=== PATIENT | male | born 1985 | race Caucasian/White ===

== ENCOUNTER 2023-09-02 07:10 | Emergency (ER) | payer SELFPAY ==
[2023-09-02 07:13] VITALS: BP 126/88; PULSE 51; TEMP 36.7; O2SAT 100; BMI 33.4
--- NOTE | 2023-09-02 07:39 | ED.GENADUL1 ---
HPI HPI - General Adult General Chief complaint: Weakness Stated complaint: GENERAL WEAKNESS Time Seen by Provider: 09/02/23 07:21 Source: patient Mode of arrival: walk-in Limitations: no limitations History of Present Illness HPI narrative: Patient felt panicked when he woke this morning. He was anxious and thought his heart was racing. He was nauseous but did not vomit. No chest pain or shortness of breath. Symptoms have all resolved except for vague sensation of nausea-like feeling. No recent injury or illness. He said that he was feeling totally fine yesterday . he said that his PCP had told him that he needed to get out-patient blood testing as a wellness check but he never did. His review of systems is otherwise negative and he has no emergent complaint or particular concern. Related Data Previous Rx's ?Medication ?Instructions ?Recorded ondansetron 4 mg disintegrating 4 mg PO Q6H PRN nausea #10 tabs 09/02/23 tablet Allergies Allergy/AdvReac Type Severity Reaction Status Date / Time No Known Drug Allergies Allergy Verified 09/02/23 07:13 Opioid HPI Opioid Management Most Recent Opioid Data: Last Pain Scale 0 09/02/23 07:19 Last ED Pain Assessment 09/02/23 07:19 Exam Narrative Exam Narrative: Nurses notes and vital signs reviewed and patient is not hypoxic. afebrile General: Well-appearing and in no apparent distress. Skin: Warm, dry, no pallor noted. Head: Normocephalic, atraumatic. Neck: Supple, non-tender. Eye: Pupils are equal, round and EOMI. No scleral icterus. Ears, Nose, Mouth, and Throat: Oral mucosa is moist Cardiovascular: Regular Rate and Rhythm without murmur, gallop or rub. Respiratory: No accessory muscle use or respiratory distress. Lungs are clear to auscultation, no wheezing, rales or rhonchi Back: No midline thoracic or lumbar vertebral tenderness. No CVA tenderness Musculoskeletal: normal ROM, no calf or popliteal tenderness, no lower extremity edema/swelling GI: Abdomen is soft, non-distended. Normal bowel sounds. No masses appreciated. No tenderness to palpation. No rebound, guarding, or rigidity noted. Neurological: A&O x4. No cranial nerve dysfunction observed. No truncal ataxia. Moves all extremities. Sensation intact. Psychiatric: Cooperative and interactive. Normal mood and affect. Constitutional Vital Signs, click to edit/add: Last Vital Signs Temp 98.0 F 09/02/23 07:13 Pulse 51 L 09/02/23 07:13 Resp 18 09/02/23 07:13 BP 126/88 09/02/23 07:13 Pulse Ox 100 09/02/23 07:13 Course Vital Signs Vital signs: Vital Signs Temperature 98.0 F 09/02/23 07:13 Pulse Rate 51 L 09/02/23 07:13 Respiratory Rate 18 09/02/23 07:13 Blood Pressure 126/88 09/02/23 07:13 Pulse Oximetry 100 09/02/23 07:13 Temperature 98.0 F 09/02/23 07:13 Pulse Rate 51 L 09/02/23 07:13 Respiratory Rate 18 09/02/23 07:13 Blood Pressure 126/88 09/02/23 07:13 Pulse Oximetry 100 09/02/23 07:13 Medical Decision Making MDM Narrative Medical decision making narrative: Patient may have had a panic attack this morning. Symptoms have resolved except for mild nausea-like sensation. He was given some zofran and discharged home. He will contact Dr guevara to get out-patient blood testing as they had discussed. Work excuse given. Discharge Plan Discharge Stand Alone Forms: Portal Instructions Chief Complaint: Weakness Clinical Impression: Anxiety, Nausea Patient Disposition: Home, Self-Care Time of Disposition Decision: 07:37 Prescriptions / Home Meds: New ondansetron 4 mg tablet,disintegrating 4 mg PO Q6H PRN (Reason: nausea) Qty: 10 0RF Print Language: Luxembourgish Instructions: Anxiety (ED) Referrals: Isauro Guevara MD [Primary Care Provider] - 1 week
[2023-09-02] MEDS: ONDANSETRON 4 MG RAPDIS TABLET SL (07:42)
== END 2023-09-02 07:47 | disposition home or self-care (01) ==
PROVIDERS: Emergency Provider Emergency Medicine; PCP Family Medicine
DX: F41.9 Anxiety disorder, unspecified (principal); R11.0 Nausea
CPT/HCPCS: 99283

== ENCOUNTER 2024-06-29 16:21 | Emergency (ER) | payer BC, SELFPAY ==
[2024-06-29 16:27] VITALS: BP 139/91; PULSE 113; TEMP 36.8; O2SAT 96; BMI 35.2
[2024-06-29 16:48] LABS: Strep A Antigen Screen Negative
[2024-06-29 16:49] LABS: Influenza Virus A Antigen Positive; Influenza Virus B Antigen Negative; Internal Control Within Normal Limits; SARS-CoV-2 Ag NEGATIVE (NEGATIVE)
[2024-06-29 16:49] LABS: Internal Control Within Normal Limits
--- NOTE | 2024-06-29 16:56 | ED.GENADUL1 ---
HPI HPI - General Adult General Chief complaint: Nausea/Vomiting/Diarrhea Stated complaint: FLU LIKE SYMPTOMS Time Seen by Provider: 06/29/24 16:26 Source: patient Mode of arrival: walk-in Limitations: no limitations History of Present Illness HPI narrative: Patient is a 39-year-old male who presents to the emergency department for flulike illness that began yesterday. Patient states he has had headache, body aches, sore throat, cough, congestion. He states he vomited last night. He denies diarrhea. No sick contacts in the home. No medications taken prior to arrival. He does not know if he has had any objective fevers because they do not have a thermometer. Related Data Previous Rx's ?Medication ?Instructions ?Recorded ondansetron 4 mg disintegrating 4 mg PO Q6H PRN nausea #10 tabs 09/02/23 tablet tespovamzqhxmgb-xhxzxkigmjivovd-SB 10 ml PO Q6H PRN cold symptoms 06/29/24 2 mg-30 mg-10 mg/5 mL oral syrup #200 mL (Bromfed DM) ondansetron 4 mg disintegrating 4 mg PO Q6H PRN nausea and 06/29/24 tablet vomiting #12 tabs Allergies Allergy/AdvReac Type Severity Reaction Status Date / Time No Known Drug Allergies Allergy Verified 06/29/24 16:27 Opioid HPI Opioid Management Most Recent Opioid Data: Last Pain Scale 0 09/02/23 07:19 09/02/23 Review of Systems ROS Constitutional Denies: fever or chills Ears, nose, mouth, and throat Reports: throat pain, nasal discharge and nasal congestion Cardiovascular Denies: chest pain Respiratory Reports: cough; Denies: shortness of breath Gastrointestinal Reports: nausea and vomiting; Denies: diarrhea Integumentary/Breast Denies: rash Neurological Reports: headache; Denies: numbness in extremities or weakness in extremities Hematologic/Lymphatic Denies: easy bruising or easy bleeding PFSH PFSH Social History Little interest or pleasure in doing things: not at all Feeling down, depressed, or hopeless: not at all Exam Narrative Exam Narrative: Gen.: Awake, alert, in no distress Head: Normocephalic, atraumatic ENT: Moist mucous membranes, no pharyngeal erythema. Right TM fluid-filled Respiratory: No respiratory distress, lungs clear bilaterally Cardio: Regular rate and rhythm Extremities: Moves extremities equally Psych: Normal mood and affect Neuro: No focal neuro deficit Skin: Warm, dry, intact Constitutional Vital Signs, click to edit/add: Last Vital Signs Temp 98.2 F 06/29/24 16:27 Pulse 113 H 06/29/24 16:27 Resp 18 06/29/24 16:27 BP 139/91 06/29/24 16:27 Pulse Ox 96 06/29/24 16:27 O2 Del Method Room Air 06/29/24 16:27 Course Vital Signs Vital signs: Vital Signs Temperature 98.2 F 06/29/24 16:27 Pulse Rate 113 H 06/29/24 16:27 Respiratory Rate 18 06/29/24 16:27 Blood Pressure 139/91 06/29/24 16:27 Pulse Oximetry 96 06/29/24 16:27 Oxygen Delivery Method Room Air 06/29/24 16:27 Temperature 98.2 F 06/29/24 16:27 Pulse Rate 113 H 06/29/24 16:27 Respiratory Rate 18 06/29/24 16:27 Blood Pressure 139/91 06/29/24 16:27 Pulse Oximetry 96 06/29/24 16:27 Oxygen Delivery Method Room Air 06/29/24 16:27 Medical Decision Making MDM Narrative Medical decision making narrative: Pain is positive for influenza A. He was given education and reassurance. Treated with Zofran and Decadron in the ER and discharged home with Bromfed-DM and Zofran for home. Work note provided. Increase fluids. Motrin and Tylenol recommended. Return to the ER if symptoms change or worsen SUPERVISED APC VISIT, PHYSICIAN ATTESTATION: Based on the medical record the care appears appropriate. ? Medical Records Medical records reviewed: Yes I reviewed the patient's medical records Lab Data Lab results reviewed: Yes I reviewed the patient's lab results Labs: Lab Results 06/29/24 06/29/24 Range/Units 16:32 16:39 Influenza Type A Ag Positive A Influenza Type B Ag Negative SARS-CoV-2 Ag (CV2AG) Negative (NEGATIVE) Streptococcus Screen Negative Discharge Plan Discharge Chief Complaint: Nausea/Vomiting/Diarrhea Clinical Impression: Influenza A Patient Disposition: Home, Self-Care Time of Disposition Decision: 16:54 Condition: Good Prescriptions / Home Meds: New charccsevaivnai-odrwcmxcx-BU [Bromfed DM] 2-30-10 mg/5 mL syrup 10 ml PO Q6H PRN (Reason: cold symptoms) Qty: 200 0RF ondansetron 4 mg tablet,disintegrating 4 mg PO Q6H PRN (Reason: nausea and vomiting) Qty: 12 0RF No Action ondansetron 4 mg tablet,disintegrating 4 mg PO Q6H PRN (Reason: nausea) Qty: 10 0RF Print Language: Citizen Of [place] Instructions: Influenza (ED) Referrals: Isauro Watson MD [Primary Care Provider] - 1 week
[2024-06-29] MEDS: ONDANSETRON 4 MG RAPDIS TABLET SL (17:00)
[2024-06-29] MEDS: DEXAMETHASONE SOD PHOS 10 MG/ML VIAL PO (17:01)
[2024-06-29 17:04] VITALS: O2SAT 98
== END 2024-06-29 17:05 | disposition home or self-care (01) ==
PROVIDERS: Physician Assistant; Emergency Provider Student in an Organized Health Care Education/Training Program; PCP Family Medicine
DX: J10.1 Influenza due to other identified influenza virus with other respiratory manifestations (principal)
CPT/HCPCS: 87070; 87804; 87811; 87880; 99285; J1100; Q0162

== ENCOUNTER 2025-05-04 08:44 | Outpatient (OUT) | payer BC, SELFPAY ==
--- OUTSIDE RECORDS SUMMARY | 2025-05-03 06:15 | XMS_ITS ---
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 6-12 monthsAUDIT-C (Standard) Question Answer Notes Did you have a drink containing alcohol in the p ast year? No Aoutqt7RnyweszdltnhssDwfflbzt Vital Signs Weight 269.6 lbs 05/03/2025 Height 73 in 05/03/2025 Blood pressure systolic 162 mm Hg 05/03/20 25 Blood pressure diastolic 102 mm Hg 025 BMI 35.57 kg/m2 05/03/2025 Encounters Encounter Location Date Provider Diagnosis [facility] [address] [place] [address] 05/03/2025 Andrea Watson Well adult Z00.0 0 Assessments Encounter Date Diagnosis (ICD Code) Assessment Notes Treatment Notes Treatment Clinical Notes Section Notes 05/03/2025 Well adult (ICD-10 - Z00.00) Plan Of Treatment Pending Test Test Name Order Date HEMOGLOBIN A1C (GLYCO) 05/03/2025 INSULIN, TOTAL 05/03/2025 LIPID PANEL (CHOL/TRIG/HDL/LDL) 05/03/20 25 STOOL OCCULT BLOOD 05/03/2025 THYROID PANEL (T4/TSH/FREE T3) 5 PSA, SCREENING 05/03/2025 CMP (COMP MET GILBERT) w/eGFR CKD-EPI 2024 CBC WITH DIFF 05/03/2025 Progress Notes * Hima COLLADO DDOB:[birth year] (40 yo M)Acc No.[id number]:05/03/2025 Progress Note Patient: Hima VEGA :?Isauro Watson ([facility]), MDDOB:1985???Age: 40 Y???Sex:MaleDate:05/03/2025Phone:[phone]:[address] [place] [id number] In:10:47 AM ESTCheck Out:11:46 AM EST Subjective: * Chief Complaints: * D OT PE- anxious- BP very highLost job- lots of stress- racing heart at times- trying to quit marjuania * HPI: ???General:? 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 * ROS: ???EENT:?hearing changes?denies.?visual changes?denies. non-healing mouth sores?denies.?swollen glands or neck lumps?denies.?hoarseness?denies.?sore throat?denies.?difficulty swallowing?denies.?nose bleeds?denies.?nasal congestion?denies.?ear ache?denies.?ear discharge denies.?ringing in ears?denies.?light sensitivity?denies.?eye pain?denies.?blurring?denies.?eye irritation?denies.?double vision?denies. vision loss?denies.?General/Constitutional:?Sweats:?Denies.?Fatigue?denies.?Sleep proble ms?denies.?Anorexia?denies.?Malaise?denies.?Weight loss?denies. Fatigue or Weakness?denies.?Fever or Chills?denies.?Cardiovascular:?Shortness of Breath w/lying flat?denies.?Lightheadedne ss/dizziness?denies.?Chest tightness/ heavy pressure?denies.?Swelling of legs, a nkles, or feet?denies.?Waking up with shortness of breath?denies.?Chest pain&#16 0;denies.?Palpitations?denies.?Weight gain?denies.?Respiratory:?Chronic or frequent cough?denies.?Coughing up blood&#1 60;denies.?Difficulty breathing?denies.?Productive cough?denies.?Snoring&#1 60;denies.?Shortness of breath that awakens from sleep (PND)?denies.?Chest pain? denies.?Sputum production?denies.?Wheezing?denies.?Musculoskeletal:?Joint pain?denies.?Joint Fluid?denies.?Backpain?denies.?Knee pain?denies.?Neck pain?denies.?Joint Stiffness?denies.?Muscle cramps?denies.?Weakness of muscles?denies.?Arthritis?denies.?Muscle aches?denies.?Pain in shoulder(s)?denies.?Swollen joints?denies.? * Active Problem List R06.83 Snoring Modified On:09/09/2022 Status:ixvrclkthE91.09Acquired absence of other part of head and neck Modified On:09/09/2022 Status:bsyncsmmtV99.210Cigarette smoker Modified On:09/09/2022U Status:sldkeofpuJ00.00Insomnia Modified On:09/09/2022 Status:gsjugkozfD49Rqcruwqucm Modified On:09/09/2022 Status:kkkoeemyuM60.9Sinusitis Modified On:09/09/2022 Status:xtcjbtmcbU43.00Well adult Modified On:05/01/2023W/U Status:rgszenfkjI26.219AChest wall contusion Modified On:09/09/2022 Status:ieadnsdtqF49.90XAKnee sprain Modified On:09/09/2022 Status:dvntjmhltS26.90Internal derangement of knee Modified On:01/29/2023 Status:uyabzzuajD16.50Low back pain, unspecified Modified On:09/09/2022 Status:puytzxvuhU41.9Gastro-esophageal reflux disease without esophagitis Modified On:10/25/2022U Status:zkngwvnszR43.9Anxiety Modified On:09/17/2023 Status:bcvcggsamX51.0Panic attacks Modified On:09/17/2023 Status:confirmed * Medical History: * Surgical History: T onsillectomy Knee Surgery * Hospitalization/Major Diagno stic Procedure: N o Hospitalization History. * Family History: F ather: 59 yrs. M other: 44 yrs. S ister(s): alive. S on(s): alive. D jf(s): alive. 1 sister(s) - healthy. 2 son(s) - healthy. . * Social History: ???Tobacco Use:?Tobacco Use/Smoking?Patient is a?former smoker ?When did you stop smoking??01/09/2022 ?How long has it been since you last smoked? 6-12 months ???Drug/Alcohol:?AUDIT-C (Standard)?Did you have a drink containing alcohol in the past year??No ?Points?0 ?Interpretation?Negative * Medications: D iscontinuedDiclofenac Sodium 75 MG Tablet Delayed Release 1 tablet as needed Orally Twice a day hydrOXYzine HCl 25 MG Tablet 1 Orally QID Tamiflu(Oseltamivir Phosphate) 75 MG Capsule 1 capsule Orally Twice a day Medication List reviewed and reconciled with the patientDiscontinued Diclofenac Sodium 75 MG Tablet Delayed Release 1 tablet as needed Orally Twice a day Discontinued hydrOXYzine HCl 25 MG Tablet 1 Orally QID Discontinued Tamiflu(Oseltamivir Phosphate) 75 MG Capsule 1 capsule Orally Twice a day Medication List reviewed and reconciled with the patient * Allergies: N .K.DLauriA.no[Allergies Verified] Objective: * Vitals: W t:269.6lbs, Ht: 73 in, BP:162/102mm Hg, BMI:35.57Index, Ht-cm: 185.42 cm, Wt-k.29 kg. * Examination: ???Physical Exam: ?GENERAL:?well developed, well nourished, in no acute distress.?HEAD:?normocephalic/atraumatic.?EYES:?pupils equal, round and reactive to light, conjunctivae and sclerae normal.?EARS:?no deformity or lesion of external ear, canals and TM appear normal bilaterally, TM's intact, not inflamed with normal light reflex, hearing grossly normal to conversational speech.?NOSE:?no deformity, discharge, inflammation, or lesions. ?MOUTH:?mucous membranes moist, normal oropharynx and posterior pharynx without lesions or exudates, tongue normal, dentition normal.?NECK:?neck supple, no masses or palpable cervical nodes, trachea midline, thyroid without nodules, masses, tenderness, or enlargement.?CHEST:?no chest wall deformity, no chest wall tenderness. ?LUNGS:?normal respiratory effort and clear to auscultation, no wheezes, rales, or rhonchi, good air exchange.?CARDIO:?regular rate and rhythm, normal S1 and S2, nor murmur, rub, or gallop.?PULSES:?normal capillary refill.?ABDOMEN:?soft, non-distended, non-tender, no masses.?MUSCULOSKELETAL:?no deformity or scoliosis noted, normal range of motion, joints normal, no erythema, edema, effusion, or ecchymosis.?EXTREMITY:?no clubbing, cyanosis, edema, or deformity withnormal ROM in both upper and lower bilateral extremities.?NEUROLOGIC:?grossly normal.?SKIN:?no rashes, ulcerations, or suspicious lesions.?LYMPH NODES:?no cervical adenopathy, nodes normal.?MENTAL STATUS:?alert and oriented x3, normal mood and affect.? Assessment: * Assessment: 1.?Well adult - Z00.00 (Primary)??? Plan: * Treatment: ?LAB: HEMOGLOBIN A1C (GLYCO) ?LAB: INSULIN, TOTAL ?LAB: LIPID PANEL (CHOL/TRIG/HDL/LDL) ?LAB: STOOL OCCULT BLOOD ?LAB: THYROID PANEL (T4/TSH/FREE T3) ?LAB: PSA, SCREENING ?LAB: CMP (COMP MET GILBERT) w/eGFR CKD-EPI ?LAB: CBC WITH DIFF * Procedure Codes: * * Sign off status: CompletedVisit Status:?CHK (Check Out) true * Provider: Luzmaria Watson ([facility])MD Date: 1 07/04/2024 Generated for Printing/Faxing/eTransmitting on:?05/04/2025 08:48 AM EST History and Physical Notes * HPI (History of Present Illness) CategorySub-CategoryDetailNotesCategory NotesGeneral cleared 3 month on DOT still high here Examination CategorySub-CategoryDetailNotesCategory NotesPhysical ExamGENERAL:well developed, well nourished, in no acute distressHEAD:normocephalic/atraumatic EYES:pupils equal, round and reactive to light, conjunctivae and sclerae normal EARS:no deformity or lesion of external ear, canals and TM appear normal bilaterally, TM's intact, not inflamed with normal light reflex, hearing grossly normal to conversational speechNOSE:no deformity, discharge, inflammation, or lesionsMOUTH:mucous membranes moist, normal oropharynx and posterior pharynx without lesions or exudates, tonguenormal, dentition normalNECK:neck supple, no masses or palpable cervical nodes, trachea midline, thyroid without nodules, masses, tenderness, or enlargementCHEST:no chest wall deformity, no chest wall tendernessLUNGS:normal respiratory effort and clear to auscultation, no wheezes, rales, or rhonchi, good air exchangeCARDIO:regular rate and rhythm, normal S1 and S2, nor murmur, rub, or gallopPULSES:normal capillary refillABDOMEN:soft, non-distended, non-tender, no massesRECTAL:MUSCULOSKELETAL:no deformity or scoliosis noted, normal range of motion, joints normal, no erythema, edema, effusion, or ecchymosisEXTREMITY:no clubbing, cyanosis, edema, or deformity with normal ROM in both upper and lower bilateral extremitiesNEUROLOGIC:grossly normalSKIN:no rashes, ulcerations, or suspicious lesionsLYMPH NODES:no cervical adenopathy, nodes normalMENTAL STATUS:alert and oriented x3, normal mood and affect
--- OUTSIDE RECORDS SUMMARY | 2025-05-04 08:48 | XMS_ITS | Patient Health Record ---
Author Organization [facility] in [place] Address [address] [place] [address] Care Team Providers Care Double End Trimmer Name Role Phone Andrea Watson Primary Care Provider [phone] Allergies No Known Allergies Results Component Value Reference Range Notes Upper Respiratory Culture Reviewed date:07/04/2024 10:13:26 AM Interpretation: Performing Lab: Notes/Report: [facility] , Upper Respiratory Culture See Below For Report Upper Respiratory Culture Upper Respiratory CultureRoutine respiratory cleopatra Upper Respiratory Culture Upper Respiratory CulturePerformed at: CB - [facility] [place] Upper Respiratory Culture Upper Respiratory [address] [place], [place] [id number] Upper Respiratory Culture Upper Respiratory CultureLab Director: Jaydon Whitman PhD, Phone: [phone] Upper Respiratory Culture Performing Lab:see note LC - [facility] LB SEE REPORT - 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 This test has been authorized only for the detection of proteins from SARS-CoV-2, not for any other viruses or pathogens. The emergency use of this test is authorized for the duration of the declaration that circumstances exist justifying the authorization of emergency use of in vitro diagnostic tests for detection and/or diagnosis of Covid-19 under section 564(b)(1) of the Act, 21 U.S.C. 360bbb-3(b)(1), unless the declaration is terminated or authorization is revoked sooner. Performing Lab:see noteML - [facility] LBSTREPT SCREEN Reviewed date:06/29/2024 08:48:12 PM Interpretation: Performing Lab: Notes/Report: [facility] ,Strep A Antigen ScreenNegativePerforming Lab:see noteML - [facility] LBINFLUENZA A AND B AG Reviewed date:06/29/2024 08:48:12 PM Interpretation: Performing Lab: Notes/Report: [facility] ,Influenza Virus A AntigenPositive NOTE: Live attenuated influenza vaccine viruses can cause a positive result for a rapid influenza diagnostic test if administered up to 7 days prior to rapid testing. Influenza Virus B AntigenNegative Negative for Flu B protein antigen. Infection due to Flu B cannot be ruled out. Flu B antigen in the sample may be below the detection limit of the test. Performing Lab:see noteML - [facility] LB Reason For Referral No Information Social History Tobacco Use: Social History Observation Description Date Details (start date - stop date) Former Smoker NA - 01/09/2022 Tobacco Use/Smoking Question Answer Notes Patient is a former smoker When did you stop smoking?01/09/2022How long has it been since you last smoked? 6-12 monthsAlcohol Screen (Audit-C) Question Answer Notes Did you have a drink containing alcohol in the p ast year? Yes How often did you have 6 or more drinks on one occasion in the past year?Two to three times per week (3 points)How many drinks did you have on a typical day when you were drinking in the past year?1 or 2 drinks (0 point)How often did you have a drink containing alcohol in the past year?Weekly (3 points)Points6 InterpretationPositiveAUDIT-C (Standard) Question Answer Notes Did you have a drink containing alcohol in the p ast year? 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)ActiveconfirmedProblem Cigarette smoker (72473024)Cigarette smoker (F17.210)ActiveconfirmedProblem Anxiety (24774473)Anxiety (F41.9)ActiveconfirmedProblemInsomnia (300528924) Insomnia (G47.00)ActiveconfirmedProblemBronchitis (84403655)Bronchitis (J40) ActiveconfirmedProblemSinusitis (76555912)Sinusitis (J32.9)Activeconfirmed ProblemWell adult (996249635)Well adult (Z00.00)ActiveconfirmedProblemContusion of chest (51898822)Chest wall contusion (S20.219A)ActiveconfirmedProblemPanic disorder (310424905)Panic attacks (F41.0)ActiveconfirmedProblemKnee sprain (82204351)Knee sprain (S83.90XA)ActiveconfirmedProblemInternal derangement of knee (58554057)Internal derangement of knee (M23.90)ActiveconfirmedProblemLow back pain (014344500)Low back pain, unspecified (M54.50)Activeconfirmed Vital Signs Blood pressure diastolic 102 mm Hg 05/03/2025 Bvcclu66 in05/03/2025lood pressure bkromnuf214 mm Hg05/03/20257823Enoybb818.6 lbs 05/03/2025BMI35.57 kg/m205/03/2025 Encounters Encounter Location Date Provider Diagnosis [facility] [address] [place] [address] 06/25/2024 Andrea Hoy Knee sprain S83.90XA and Left knee sprain S83.92XA [facility] [address] [place] [address] 05/03/2025 Andrea Hoy Well adult Z00.00 [facility] [id number] [place] [address] 06/29/2024 Andrea Hoy Assessments Encounter Date Diagnosis (ICD Code) Assessment Notes Treatment Notes Treatment Clinical Notes Section Notes 06/25/2024 Knee sprain (ICD-10 - S83.90XA) 06/25/2024Left knee sprain (ICD-10 - S83.92XA)05/03/2025Well adult (ICD-10 - Z00.00) Plan Of Treatment Pending Test Test Name Order Date CMP (COMPLETE METABOLIC PANEL) 3 HEMOGLOBIN A1C (GLYCO) 01/31/2023 HEMOGLOBIN A1C (GLYCO) 05/03/2025 INSULIN, TOTAL 05/03/2025 LIPID PANEL (CHOL/TRIG/HDL/LDL) 02/01/20 LIPID PANEL (CHOL/TRIG/HDL/LDL) 05/03/20 25 CBC WITH DIFF (EXP 03/2025) 01/31/2023 STOOL OCCULT BLOOD 05/03/2025 THYROID PANEL (T4/TSH/FREE T3) 5 THYROID PANEL (T4/TSH/FREE T3) 3 PSA, SCREENING 05/03/2025 CMP (COMP MET GILBERT) w/eGFR CKD-EPI 2024 CBC WITH DIFF 05/03/2025 Insurance Providers Payer Name Payer Address Payer Phone Subscriber Number Group Number Insured Name Patient Relationship to Insured Coverage Start Date Coverage End Date [facility] [address] [place] [address] [id number] Trevor Collado - patient is the insured Medical (General) History Medical History History ICD Code Snoring R06.83 Well adult Z00.00 Low back pain, unspecified M54.50 Insomnia G47.00 Bronchitis J40 Internal derangement of knee M23.90 Knee sprain S83.90XA Chest wall contusion S20.219A Acquired absence of other part of head a nd neck Z90.09 Cigarette smoker F17.210 Sinusitis J32.9 Surgical History Surgery Date(Month/Year) Tonsillectomy Knee Surgery
[2025-05-04 09:14] LABS: Hematocrit 44.6 % (42.0-54.0); Hemoglobin 15.5 g/dL (14.0-18.0); Immature Granulocytes Abs Auto 0.03 10^3/uL (0.00-0.03); Immature Granulocytes Pct Auto 0.4 % (0.0-0.5); Lymphocytes Absolute Auto 3.1 10^3/uL (1.2-3.8); Mean Corpuscular HGB Conc 34.8 g/dL (29.9-35.2); Mean Corpuscular Hemoglobin 29.9 pg (25.9-34.0); Mean Corpuscular Volume 85.9 fL (80.0-94.0); Platelet Count 308 10^3/uL (150-450); Red Blood Count 5.19 10^6/uL (4.70-6.10); White Blood Count 8.1 10^3/uL (4.0-11.0)
[2025-05-04 10:07] LABS: Alanine Aminotransferase 41 U/L (16-63); Albumin Globulin Ratio 1.3; Albumin Level 4.3 g/dL (3.4-5.0); Alkaline Phosphatase 84 U/L (46-116); Anion Gap 12.6; Aspartate Amino Transferase 15 U/L (15-37); Blood Urea Nitrogen 15.0 mg/dL (7.0-18.0); Calcium 9.1 mg/dL (8.5-10.1); Carbon Dioxide 26.5 mmol/L (21.0-32.0); Chloride 107 mmol/L (98-107); Cholesterol 200 mg/dL (<=200); Estimated GFR (African America >60 (>=60 mL/min/1.73m^2); Estimated GFR (Non-African Ame >60 (>=60 mL/min/1.73m^2); Free T3 3.01 pg/mL (2.18-3.98); Globulin 3.4 g/dL; Glucose 105 mg/dL (74-106); HDL Cholesterol 32 mg/dL (40-60); Potassium 4.1 mmol/L (3.5-5.1); Sodium 142 mmol/L (136-145); Thyroid Stimulating Hormone 0.955 uIU/mL (0.358-3.740); Total Protein 7.7 g/dL (6.4-8.2); Triglycerides 95 mg/dL (<=150); VLDL CHOLESTEROL 19.0 mg/dL
== END 2025-05-04 08:45 | disposition home or self-care (01) ==
PROVIDERS: PCP Family Medicine; Visit Provider Family Medicine
DX: Z00.00 Encounter for general adult medical examination without abnormal findings (principal); Z12.5 Encounter for screening for malignant neoplasm of prostate
CPT/HCPCS: 36415; 80053; 80061; 83036; 83525; 84436; 84443; 84481; 85025; G0103; G0328